=== PATIENT | male | born 1955 | race Caucasian/White ===

== ENCOUNTER 2018-06-12 16:47 | Inpatient (IN) | payer OTHER ==
[2018-06-12 17:16] LABS: INTERNATIONAL RATION (INR) 1.12
[2018-06-12 17:24] LABS: ALANINE AMINOTRANSFERASE 27 U/L (21-72); ALBUMIN 3.6 g/dL (3.5-5.0); ALKALINE PHOSPHATASE 109 U/L (38-126); ANION GAP 14 (5-19); ASPARTATE AMINO TRANSFERASE 22 U/L (17-59); BILIRUBIN,DIRECT 0.6 mg/dL (0.0-0.4); BILIRUBIN,TOTAL 1.8 mg/dL (0.2-1.3); BLOOD UREA NITROGEN 17 mg/dL (7-20); CALCIUM 9.2 mg/dL (8.4-10.2); CARBON DIOXIDE 22 mmol/L (22-30); CHLORIDE 100 mmol/L (98-107); GLUCOSE 141 mg/dL (75-110); POTASSIUM 3.4 mmol/L (3.6-5.0); SODIUM 136.3 mmol/L (137-145); TOTAL PROTEIN 6.5 g/dL (6.3-8.2)
[2018-06-12 17:41] LABS: HEMATOCRIT 43.7 % (37.9-51.0); HEMOGLOBIN 15.3 g/dL (13.5-17.0); MEAN CORPUSCULAR HEMOGLOBIN 31.7 pg (27.0-33.4); MEAN CORPUSCULAR HGB CONC 34.9 g/dL (32.0-36.0); MEAN CORPUSCULAR VOLUME 91 fl (80-97); PLATELET COUNT 235 10^3/uL (150-450); RED BLOOD COUNT 4.81 10^6/uL (4.35-5.55); RED CELL DISTRIBUTION WIDTH 13.4 % (11.5-14.0); WHITE BLOOD COUNT 17.3 10^3/uL (4.0-10.5)
[2018-06-12] MEDS ORDERED: RINGERS SOLUTION,LACTATED 1,000 ML IV ONE ×2 (17:43→20:45)
[2018-06-12] MEDS ORDERED: KETOROLAC TROMETHAMINE INJ/PF 30 MG/1 ML SDV IV ONE (17:44)
--- NOTE | 2018-06-12 17:47 | ER Document Report ---
ED General - General Chief Complaint: Fever Stated Complaint: FEVER Time Seen by Provider: 06/12/18 17:43 Mode of Arrival: Medic Information source: Patient, Relative, Emergency Med Personnel, [facility] Records Notes: 62-year-old male with hypertension presents via EMS after found him shaking and unable to stand secondary to weakness. Patient was diagnosed with a urinary tract infection this morning. He received a shot of Rocephin IM and was sent home with instructions that if his fever persisted he should return for a second shot of Rocephin. reports that the patient had a fever of 103 that started yesterday, resolved after taking Tylenol but reoccurred this afternoon. She sta skyler the fever was 103 when she found the patient with Rigors. She states when the patient attempted to get off the couch he was too weak to do so. Patient denies headache, blurred vision, nausea, vomiting, chest pain, shortness of breath, abdominal pain, dysuria, hematuria - HPI Onset: Just prior to arrival Onset/Duration: Gradual Quality of pain: Achy Severity: Mild Associated symptoms: Body/muscle aches, Chills, Fever, Weakness. denies: Chest pain, Nonproductive cough, Productive cough, Earache, Headache, Nausea, Vomiting, Shortness of breath, Sweating Exacerbated by: Denies Relieved by: Denies Similar symptoms previously: Yes Recently seen / treated by doctor: Yes - Seen by his primary care physician this morning - Related Data Allergies/Adverse Reactions: oxycodone Allergy (Verified 06/12/18 18:34) Past Medical History - General Information source: Patient, Relative, [facility] Records - Social History Smoking Status: Never Smoker Frequency of alcohol use: Occasional Drug Abuse: None Lives with: Spouse/Significant other Family History: Reviewed & Not Pertinent Patient has suicidal ideation: No Patient has homicidal ideation: No - Past Medical History Cardiac Medical History: Reports: Hx Hypertension Review of Systems - Review of Systems Notes: REVIEW OF SYSTEMS: CONSTITUTIONAL : + fever, chills, or sweats. Denies recent illness. Denies weight loss, recent hospitalizations. EENT: Denies visual changes, eye pain. Denies sore throat, oral lesions, difficulty swallowing. CARDIOVASCULAR: Denies chest pain. Denies palpitations. Denies lower extremity edema. RESPIRATORY: Denies cough. Denies shortness of breath, wheezing. GASTROINTESTINAL: Denies abdominal pain or distention. Denies nausea, vomiting, or diarrhea. Denies blood in vomitus, stools, or per rectum. Denies black, tarry stools. Denies constipation. GENITOURINARY: Denies difficulty urinating, painful urination, frequency, blood in urine, testicular pain or penile discharge. MUSCULOSKELETAL: Denies back or neck pain or stiffness. Denies joint pain or swelling. SKIN: Denies rash, lesions or sores. HEMATOLOGIC : Denies easy bruising or bleeding. LYMPHATIC: Denies swollen glands. NEUROLOGICAL: Denies confusion or altered mental status. Denies loss of consciousness. Denies dizziness or lightheadedness. Denies headache. Denies weakness or paralysis. Denies problems difficulty with ambulation, slurred speech. Denies sensory loss, numbness, or tingling. Denies seizures. PSYCHIATRIC: Denies anxiety or stress. Denies depression, suicidal ideation, or Physical Exam - Vital signs Vitals: Resp Pulse Ox 15 94 06/12/18 17:05 06/12/18 17:05 - Notes Notes: PHYSICAL EXAMINATION: GENERAL: Well-appearing, well-nourished and in no acute distress. HEAD: Atraumatic, normocephalic. EYES: Pupils equal round and reactive to light, extraocular movements intact, sclera anicteric, conjunctiva are normal. ENT: Nares patent, oropharynx clear without exudates. Moist mucous membranes. NECK: Normal range of motion, supple without lymphadenopathy LUNGS: Breath sounds clear to auscultation bilaterally and equal. No wheezes rales or rhonchi. HEART: Tachycardic, regular rhythm without murmurs ABDOMEN: Soft, nontender, nondistended abdomen. No guarding, no rebound. No masses appreciated. Musculoskeletal: Normal range of motion, no pitting or edema. No cyanosis. NEUROLOGICAL: Cranial nerves grossly intact. Normal speech, normal gait. Normal sensory, motor exams PSYCH: Normal mood, normal affect. SKIN: Warm, Dry, normal turgor, no rashes or lesions noted. Course - Re-evaluation Re-evalutation: 06/12/18 20:52 Laboratory 06/12/18 06/12/18 06/12/18 16:18 16:18 17:28 WBC 17.3 H RBC 4.81 Hgb 15.3 Hct 43.7 MCV 91 MCH 31.7 MCHC 34.9 RDW 13.4 Plt Count 235 Total Counted 100 Seg Neutrophils % Not Reportable Seg Neuts % (Manual) 90 H Band Neutrophils % 8 H Lymphocytes % Not Reportable Lymphocytes % (Manual) 1 L Monocytes % Not Reportable Monocytes % (Manual) 1 L Eosinophils % Not Reportable Eosinophils % (Manual) 0 Basophils % Not Reportable Basophils % (Manual) 0 Absolute Neutrophils Not Reportable Abs Neuts (Manual) 17.0 H Absolute Lymphocytes Not Reportable Abs Lymphs (Manual) 0.2 L Absolute Monocytes Not Reportable Abs Monocytes (Manual) 0.2 Absolute Eosinophils Not Reportable Absolute Eos (Manual) 0.0 Absolute Basophils Not Reportable Abs Basophils (Manual) 0.0 Toxic Granulation SLIGHT Toxic Vacuolation PRESENT Clumped Platelets PRESENT Platelet Comment Not Reportable RBC Morph Comment NORMO-CYTIC/CHROMIC PT 15.0 INR 1.12 VBG pH VBG pCO2 VBG HCO3 VBG Base Excess Sodium 136.3 L Potassium 3.4 L Chloride 100 Carbon Dioxide 22 Anion Gap 14 BUN 17 Creatinine 0.99 Est GFR ( Amer) > 60 Est GFR (Non-Af Amer) > 60 Glucose 141 H Lactic Acid Calcium 9.2 Total Bilirubin 1.8 H Direct Bilirubin 0.6 H Neonat Total Bilirubin Not Reportable Neonat Direct Bilirubin Not Reportable Neonat Indirect Bili Not Reportable AST 22 ALT 27 Alkaline Phosphatase 109 Troponin I Total Protein 6.5 Albumin 3.6 Urine Color Urine Appearance Urine pH Ur Specific [place] Urine Protein Urine Glucose (UA) Urine Ketones Urine Blood Urine Nitrite Urine Bilirubin Urine Urobilinogen Ur Leukocyte Esterase Urine WBC (Auto) Urine RBC (Auto) Urine WBC Clumps Squamous Epi Cells Auto Amorphous Sediment Auto Urine Mucus (Auto) Urine Ascorbic Acid Influenza A (Rapid) Influenza B (Rapid) 06/12/18 06/12/18 06/12/18 17:28 17:28 18:08 WBC RBC Hgb Hct MCV MCH MCHC RDW Plt Count Total Counted Seg Neutrophils % Seg Neuts % (Manual) Band Neutrophils % Lymphocytes % Lymphocytes % (Manual) Monocytes % Monocytes % (Manual) Eosinophils % Eosinophils % (Manual) Basophils % Basophils % (Manual) Absolute Neutrophils Abs Neuts (Manual) Absolute Lymphocytes Abs Lymphs (Manual) Absolute Monocytes Abs Monocytes (Manual) Absolute Eosinophils Absolute Eos (Manual) Absolute Basophils Abs Basophils (Manual) Toxic Granulation Toxic Vacuolation Clumped Platelets Platelet Comment RBC Morph Comment PT INR VBG pH VBG pCO2 VBG HCO3 VBG Base Excess Sodium Potassium Chloride Carbon Dioxide Anion Gap BUN Creatinine Est GFR ( Amer) Est GFR (Non-Af Amer) Glucose Lactic Acid 1.3 Calcium Total Bilirubin Direct Bilirubin Neonat Total Bilirubin Neonat Direct Bilirubin Neonat Indirect Bili AST ALT Alkaline Phosphatase Troponin I 0.016 Total Protein Albumin Urine Color YELLOW Urine Appearance SLIGHTLY-CLOUDY Urine pH 6.0 Ur Specific [place] 1.013 Urine Protein 100 H Urine Glucose (UA) NEGATIVE Urine Ketones 20 H Urine Blood MODERATE H Urine Nitrite NEGATIVE Urine Bilirubin NEGATIVE Urine Urobilinogen NEGATIVE Ur Leukocyte Esterase LARGE H Urine WBC (Auto) 115 Urine RBC (Auto) 54 Urine WBC Clumps RARE Squamous Epi Cells Auto <1 Amorphous Sediment Auto TRACE Urine Mucus (Auto) RARE Urine Ascorbic Acid NEGATIVE Influenza A (Rapid) Influenza B (Rapid) 06/12/18 06/12/18 18:30 18:30 WBC RBC Hgb Hct MCV MCH MCHC RDW Plt Count Total Counted Seg Neutrophils % Seg Neuts % (Manual) Band Neutrophils % Lymphocytes % Lymphocytes % (Manual) Monocytes % Monocytes % (Manual) Eosinophils % Eosinophils % (Manual) Basophils % Basophils % (Manual) Absolute Neutrophils Abs Neuts (Manual) Absolute Lymphocytes Abs Lymphs (Manual) Absolute Monocytes Abs Monocytes (Manual) Absolute Eosinophils Absolute Eos (Manual) Absolute Basophils Abs Basophils (Manual) Toxic Granulation Toxic Vacuolation Clumped Platelets Platelet Comment RBC Morph Comment PT INR VBG pH 7.48 H VBG pCO2 33.3 L VBG HCO3 24.3 VBG Base Excess 1.5 Sodium Potassium Chloride Carbon Dioxide Anion Gap BUN Creatinine Est GFR ( Amer) Est GFR (Non-Af Amer) Glucose Lactic Acid Calcium Total Bilirubin Direct Bilirubin Neonat Total Bilirubin Neonat Direct Bilirubin Neonat Indirect Bili AST ALT Alkaline Phosphatase Troponin I Total Protein Albumin Urine Color Urine Appearance Urine pH Ur Specific [place] Urine Protein Urine Glucose (UA) Urine Ketones Urine Blood Urine Nitrite Urine Bilirubin Urine Urobilinogen Ur Leukocyte Esterase Urine WBC (Auto) Urine RBC (Auto) Urine WBC Clumps Squamous Epi Cells Auto Amorphous Sediment Auto Urine Mucus (Auto) Urine Ascorbic Acid Influenza A (Rapid) NEGATIVE Influenza B (Rapid) NEGATIVE Chest X-Ray 06/12/18 17:47 IMPRESSION: Large hiatal hernia. No acute pulmonary disease. Temp Pulse Resp BP Pulse Ox 98.5 F 27 H 92/61 L 95 06/12/18 20:03 06/12/18 20:01 06/12/18 20:01 06/12/18 20:01 06/12/18 21:37 62-year-old male with hypertension and recent diagnosis of urinary tract infection presents via EMS with complaint of weakness, Rigor's, fever. Upon arrival patient is afebrile but reports that Tylenol was given prior to arrival. Patient has mild hypotension and tachycardia. CBC does show a leukocytosis of 17 and a bandemia of 8. Urinalysis consistent with urinary tract infection. Patient did receive IV fluids, ceftriaxone during his ED course. On reevaluation he states he is feeling better but still weak. Spoke to Dr. Lambert who has agreed for admission. Patient will be admitted to a medicine floor. - Vital Signs Vital signs: Temp Pulse Resp BP Pulse Ox 98.5 F 21 H 107/71 93 06/12/18 20:03 06/12/18 21:01 06/12/18 21:00 06/12/18 21:01 - Laboratory Result Diagrams: 06/12/18 17:28 06/12/18 16:18 Laboratory results interpreted by me: 06/12/18 06/12/18 06/12/18 16:18 17:28 18:08 WBC 17.3 H Seg Neuts % (Manual) 90 H Band Neutrophils % 8 H Lymphocytes % (Manual) 1 L Monocytes % (Manual) 1 L Abs Neuts (Manual) 17.0 H Abs Lymphs (Manual) 0.2 L VBG pH VBG pCO2 Sodium 136.3 L Potassium 3.4 L Glucose 141 H Total Bilirubin 1.8 H Direct Bilirubin 0.6 H Urine Protein 100 H Urine Ketones 20 H Urine Blood MODERATE H Ur Leukocyte Esterase LARGE H 06/12/18 18:30 WBC Seg Neuts % (Manual) Band Neutrophils % Lymphocytes % (Manual) Monocytes % (Manual) Abs Neuts (Manual) Abs Lymphs (Manual) VBG pH 7.48 H VBG pCO2 33.3 L Sodium Potassium Glucose Total Bilirubin Direct Bilirubin Urine Protein Urine Ketones Urine Blood Ur Leukocyte Esterase - Diagnostic Test Radiology reviewed: Image reviewed, Reports reviewed - EKG Interpretation by Me EKG shows normal: Sinus rhythm Rate: Tachycardia Rhythm: NSR When compared to previous EKG there are: No significant change Discharge - Discharge Clinical Impression: UTI (urinary tract infection) Qualifiers: Urinary tract infection type: site unspecified Hematuria presence: without hematuria Qualified Code(s): N39.0 - Urinary tract infection, site not specified Leukocytosis Qualifiers: Leukocytosis type: bandemia Qualified Code(s): D72.825 - Bandemia Hypotension Qualifiers: Hypotension type: unspecified hypotension type Qualified Code(s): I95.9 - Hypotension, unspecified Condition: Good Disposition: ADMITTED INPATIENT Admitting Provider: Petra (Hospitalist) Unit Admitted: Medical Floor
[2018-06-12 17:57] LABS: ABSOLUTE LYMPHOCYTES# (MANUAL) 0.2 10^3/uL (0.5-4.7); ABSOLUTE MONOCYTES # (MANUAL) 0.2 10^3/uL (0.1-1.4); BAND NEUTROPHILS % (MANUAL) 8 % (3-5); BASOPHILS % (MANUAL) 0 % (0-2); EOSINOPHILS % (MANUAL) 0 % (0-6); LYMPHOCYTES % (MANUAL) 1 % (13-45); MONOCYTES % (MANUAL) 1 % (3-13); SEGMENTED NEUTROPHILS % (MAN) 90 % (42-78); TOTAL CELLS COUNTED 100
[2018-06-12 17:58] LABS: PLATELET CLUMPS PRESENT; TOXIC GRANULATION SLIGHT; TOXIC VACUOLATION PRESENT
[2018-06-12] MEDS ORDERED: CEFTRIAXONE 1 GM/D5W RTU 1 GM/50 ML RTUPB IV ONE ×2 (18:06→18:54)
[2018-06-12 18:07] LABS: RBC MORPHOLOGY COMMENT NORMO-CYTIC/CHROMIC
[2018-06-12 18:24] LABS: AMORPHOUS SEDIMENT,URINE TRACE /HPF; APPEARANCE,URINE SLIGHTLY-CLOUDY; BILIRUBIN,URINE NEGATIVE (NEGATIVE); COLOR,URINE YELLOW; GLUCOSE, URINE NEGATIVE (NEGATIVE); KETONES,URINE 20 mg/dL (NEGATIVE); LEUKOCYTE ESTERASE,URINE LARGE (NEGATIVE); NITRITE,URINE NEGATIVE (NEGATIVE); PROTEIN,URINE 100 mg/dL (NEGATIVE); URINE SPECIFIC GRAVITY 1.013; UROBILINOGEN,URINE NEGATIVE mg/dL (<2.0)
[2018-06-12 18:42] LABS: VENOUS BLOOD BASE EXCESS 1.5 mmol/L; VENOUS BLOOD HCO3 24.3 mmol/L (20-32); VENOUS BLOOD PCO2 33.3 mmHg (35-63); VENOUS BLOOD PH 7.48 (7.30-7.42)
--- NOTE | 2018-06-12 19:04 | RADIOLOGY REPORT (SQ) ---
EXAM DESCRIPTION: CHEST 2 VIEWS COMPLETED DATE/TIME: 06/12/2018 6:56 pm REASON FOR STUDY: fever COMPARISON: None. EXAM PARAMETERS: NUMBER OF VIEWS: two views TECHNIQUE: Digital Frontal and Lateral radiographic views of the chest acquired. RADIATION DOSE: NA LIMITATIONS: none FINDINGS: LUNGS AND PLEURA: No opacities, masses or pneumothorax. No pleural effusion. MEDIASTINUM AND HILAR STRUCTURES: Large retrocardiac hiatal hernia. HEART AND VASCULAR STRUCTURES: Heart normal size. No evidence for failure. BONES: Chronic appearing low thoracic compression fractures. HARDWARE: None in the chest. OTHER: No other significant finding. IMPRESSION: Large hiatal hernia. No acute pulmonary disease. TECHNICAL DOCUMENTATION: JOB ID: [id number] Collections- All Rights Reserved Reading location - IP/workstation name: [email or web address]
[2018-06-12 19:15] LABS: A TYPE INFLUENZA AG NEGATIVE (NEGATIVE); B INFLUENZA AG NEGATIVE (NEGATIVE)
--- NOTE | 2018-06-12 19:32 | EKG REPORT ---
SEVERITY:- BORDERLINE ECG - SINUS TACHYCARDIA BORDERLINE T ABNORMALITIES, INFERIOR LEADS : Confirmed by: Tanna George MD 12-Jun-2018 19:31:19
[2018-06-12] MEDS ORDERED: TEMAZEPAM 15 MG CAPSULE PO PRN (22:04)
[2018-06-12] MEDS ORDERED: MAG HYDROX/AL HYDROX/SIMETH SUSP 30 ML UDCUP PO PRN (22:04)
[2018-06-12] MEDS ORDERED: ONDANSETRON 4 MG TAB.RAPDIS PO PRN (22:04)
[2018-06-12] MEDS ORDERED: ONDANSETRON HCL INJ/PF 4 MG/2 ML SDV IV PRN (22:04)
[2018-06-12] MEDS ORDERED: MAGNESIUM HYDROXIDE SUSP 30 ML UDCUP PO PRN (22:04)
[2018-06-12] MEDS ORDERED: IBUPROFEN 800 MG TABLET PO PRN (22:09)
[2018-06-12] MEDS ORDERED: ACETAMINOPHEN 325 MG TABLET PO PRN (22:09)
[2018-06-12] MEDS ORDERED: NALBUPHINE HCL INJ 10 MG/1 ML AMPULE IV PRN (22:09)
[2018-06-12] MEDS ORDERED: MEROPENEM 1 GM VIAL IV PRN (22:10)
[2018-06-12] MEDS ORDERED: FAMOTIDINE 20 MG TABLET PO ONE (22:30)
[2018-06-12] MEDS ORDERED: HEPARIN SOD (PORCINE) 5,000 UNIT/ML 1 ML SYRINGE SUBCUT ONE (22:30)
[2018-06-12] MEDS ORDERED: MEROPENEM 1 GM in NORMAL SALINE 50 ML IV ONE (23:00)
[2018-06-12] MEDS ORDERED: DOCUSATE SODIUM 100 MG CAPSULE PO ONE (23:00)
[2018-06-12] MEDS ORDERED: TAMSULOSIN HCL 0.4 MG CAP.SR.24H PO ONE (23:00)
[2018-06-12] MEDS ORDERED: MEROPENEM 1 GM VIAL ONE (23:29)
--- NOTE | 2018-06-13 01:53 | PDOC H&P ---
History of Present Illness Admission Date/PCP: 06/12/18 21:02 MAYNOR TAVERAS MD Patient complains of: Fever History of Present Illness: COLLEEN SUNG is a 62 year old male who presented to the emergency room via EMS with a 1 day history of fever to approximately 104 F. Patient admits that he developed a severe high fever and associated severe chills chills with rigors, moderately severe diaphoresis and moderately severe generalized weakness after being seen by his primary care provider this morning and being diagnosed with a urinary tract infection treated with an intramuscular injection of Rocephin. He was instructed to use Tylenol to help control his fever which he did successfully, but within a few hours the fever returned. He further admits that he had a fever up to approximately 103 F on the day prior to admission and he also acknowledges a history of several recent urinary tract infections with similar symptoms. He has not identified any aggravating or other ameliorating ameliorating factors for his urinary tract infections or fever. In the emergency room he was found to have a leukocytosis with a white blood count of 17,300 and a urine with increased WBCs as well as a positive leukocyte esterase and negative nitrite. Given his failed outpatient therapy patient was admitted to the hospital for further evaluation and treatment. Past Medical History Cardiac Medical History: Reports: Hypertension Denies: Atrial Fibrillation, Congestive Heart Failure, Coronary Artery Disease, DVT, Myocardial Infarction, Hyperlipidema, Pulmonary Embolism Pulmonary Medical History: Denies: Asthma, Chronic Obstructive Pulmonary Disease (COPD) EENT Medical History: Reports: Eyes - Uses corrective lenses Denies: Cataracts Neurological Medical History: Denies: Hemorrhagic CVA, Ischemic CVA, Seizures Endocrine Medical History: Denies: Diabetes Mellitus Type 1, Diabetes Mellitus Type 2, Hyperthyroidism, Hypothyroidism Renal/ Medical History: Reports: Other - Urinary tract infections Denies: Chronic Kidney Disease, Nephrolithiasis Malignancy Medical History: Reports: None GI Medical History: Denies: Cirrhosis, Crohn's Disease, Hepatitis, Peptic Ulcer Disease, Ulcerative Colitis Musculoskeltal Medical History: Denies: Arthritis, Gout Skin Medical History: Denies: Eczema, Psoriasis Psychiatric Medical History: Denies: Alcohol Dependency, Substance Abuse, Tobacco Dependency Traumatic Medical History: Reports: None Hematology: Denies: Anemia, Bleeding Tendencies Infectious Medical History: Reports: None Past Surgical History Past Surgical History: Reports: Knee Replacement, Orthopedic Surgery - Bilateral knee replacements Social History Information Source: Patient Lives with: Spouse/Significant other Smoking Status: Never Smoker Frequency of Alcohol Use: Rare Hx Recreational Drug Use: No Drugs: None Hx Prescription Drug Abuse: No - Advance Directive Resuscitation Status: Full Code Surrogate healthcare decision maker:: Spouse Family History Family History: CAD, Hypertension, Malignancy. denies: DM Parental Family History Reviewed: Yes Children Family History Reviewed: No Sibling(s) Family History Reviewed.: Yes Medication/Allergy Home Medications: Amlodipine Besylate [Norvasc 10 mg Tablet] 10 mg PO DAILY 06/12/18 Allergies/Adverse Reactions: oxycodone Allergy (Verified 06/12/18 18:34) Review of Systems Constitutional: PRESENT: as per HPI, chills - With rigors, fever(s), weakness Eyes: ABSENT: visual disturbances, other - Eye pain Ears: ABSENT: hearing changes, other - Ear pain Nose, Mouth, and Throat: ABSENT: mouth pain, sore throat Cardiovascular: ABSENT: chest pain, palpitations Respiratory: ABSENT: cough, dyspnea Gastrointestinal: ABSENT: abdominal pain, constipation, diarrhea, nausea, vomiting Genitourinary: ABSENT: difficulty urinating, dysuria, hematuria Musculoskeletal: ABSENT: back pain, joint swelling, muscle weakness Integumentary: ABSENT: pruritus, rash Neurological: ABSENT: confusion, convulsions, focal weakness, memory loss, syncope Psychiatric: ABSENT: anxiety, depression Endocrine: ABSENT: cold intolerance, heat intolerance Hematologic/Lymphatic: ABSENT: easy bleeding, easy bruising Physical Exam Vital Signs: Temp Pulse Resp BP Pulse Ox 98.5 F 21 H 107/71 93 06/12/18 20:03 06/12/18 21:01 06/12/18 21:00 06/12/18 21:01 Intake & Output 06/10/18 06/11/18 06/12/18 23:59 23:59 23:59 Intake Total 1000 Balance 1000 Weight 95.254 kg General appearance: PRESENT: no acute distress, cooperative Head exam: PRESENT: atraumatic, normocephalic Eye exam: ABSENT: conjunctival injection, nystagmus, scleral icterus Ear exam: PRESENT: normal external ear exam. ABSENT: bleeding, drainage Mouth exam: ABSENT: dry mucosa, neck supple Neck exam: ABSENT: thyromegaly, tracheal deviation Respiratory exam: PRESENT: clear to auscultation janae, symmetrical, unlabored Cardiovascular exam: PRESENT: RRR. ABSENT: clicks, gallop, rubs Pulses: PRESENT: normal radial pulses, normal dorsalis pedis pul Vascular exam: PRESENT: normal capillary refill. ABSENT: pallor GI/Abdominal exam: PRESENT: normal bowel sounds, soft. ABSENT: tenderness Rectal exam: PRESENT: deferred Extremities exam: ABSENT: joint swelling, pedal edema Musculoskeletal exam: PRESENT: full ROM, normal inspection. ABSENT: tenderness Neurological exam: PRESENT: alert, awake, oriented to person, oriented to place, oriented to time, oriented to situation, CN II-XII grossly intact. ABSENT: motor sensory deficit Psychiatric exam: PRESENT: appropriate affect, normal mood Skin exam: PRESENT: dry, intact, warm. ABSENT: jaundice, rash, urticaria Results Laboratory Results: 06/12/18 17:28 06/12/18 16:18 06/12/18 06/12/18 06/12/18 16:18 17:28 17:28 WBC 17.3 H RBC 4.81 Hgb 15.3 Hct 43.7 MCV 91 MCH 31.7 MCHC 34.9 RDW 13.4 Plt Count 235 Seg Neutrophils % Not Reportable Lymphocytes % Not Reportable Monocytes % Not Reportable Eosinophils % Not Reportable Basophils % Not Reportable Absolute Neutrophils Not Reportable Absolute Lymphocytes Not Reportable Absolute Monocytes Not Reportable Absolute Eosinophils Not Reportable Absolute Basophils Not Reportable VBG pH VBG pCO2 VBG HCO3 VBG Base Excess Sodium 136.3 L Potassium 3.4 L Chloride 100 Carbon Dioxide 22 Anion Gap 14 BUN 17 Creatinine 0.99 Est GFR ( Amer) > 60 Est GFR (Non-Af Amer) > 60 Glucose 141 H Lactic Acid 1.3 Calcium 9.2 Total Bilirubin 1.8 H AST 22 ALT 27 Alkaline Phosphatase 109 Total Protein 6.5 Albumin 3.6 Urine Color Urine Appearance Urine pH Ur Specific [place] Urine Protein Urine Glucose (UA) Urine Ketones Urine Blood Urine Nitrite Ur Leukocyte Esterase Urine WBC (Auto) Urine RBC (Auto) 06/12/18 06/12/18 18:08 18:30 WBC RBC Hgb Hct MCV MCH MCHC RDW Plt Count Seg Neutrophils % Lymphocytes % Monocytes % Eosinophils % Basophils % Absolute Neutrophils Absolute Lymphocytes Absolute Monocytes Absolute Eosinophils Absolute Basophils VBG pH 7.48 H VBG pCO2 33.3 L VBG HCO3 24.3 VBG Base Excess 1.5 Sodium Potassium Chloride Carbon Dioxide Anion Gap BUN Creatinine Est GFR ( Amer) Est GFR (Non-Af Amer) Glucose Lactic Acid Calcium Total Bilirubin AST ALT Alkaline Phosphatase Total Protein Albumin Urine Color YELLOW Urine Appearance SLIGHTLY-CLOUDY Urine pH 6.0 Ur Specific [place] 1.013 Urine Protein 100 H Urine Glucose (UA) NEGATIVE Urine Ketones 20 H Urine Blood MODERATE H Urine Nitrite NEGATIVE Ur Leukocyte Esterase LARGE H Urine WBC (Auto) 115 Urine RBC (Auto) 54 06/12/18 17:28 Troponin I 0.016 Impressions: Chest X-Ray 06/12/18 17:47 IMPRESSION: Large hiatal hernia. No acute pulmonary disease. Assessment and Plan - Diagnosis (1) SIRS (systemic inflammatory response syndrome) Is this a current diagnosis for this admission?: Yes Plan: Patient meets criteria for SIRS syndrome due to fever, leukocytosis and mild hypotension. Serum lactate is negative. Patient will be observed closely for possible sepsis with frequent vital signs and daily laboratory evaluations of his CBC admitted profile. Blood and urine cultures are pending. He will also be started on an IV antibiotic more appropriate for treatment of sepsis utilizing meropenem. Patient will receive high-volume IV fluids and other supportive and symptomatic therapy as required. Should he develop pain the pat ient will utilize Nubain 10 mg IV every 3 hours as needed for pain. (2) UTI (urinary tract infection) Qualifiers: Urinary tract infection type: site unspecified Hematuria presence: without hematuria Qualified Code(s): N39.0 - Urinary tract infection, site not specified Is this a current diagnosis for this admission?: Yes Plan: Patient's urinary tract infection will be treated with meropenem 1 g IV every 8 hours. Urine C&S is pending. As he has a history of several recurrent urinary tract infections over the last year or 2 he will be started on tamsulosin empirically for prophylaxis utilizing Flomax 0.4 mg p.o. daily (3) Fever and chills Is this a current diagnosis for this admission?: Yes Plan: Patient will be treated with routine supportive and subjective therapy for fever and chills. This will include Tylenol and/or ibuprofen. (4) HTN (hypertension) Qualifiers: Hypertension type: essential hypertension Qualified Code(s): I10 - Essential (primary) hypertension Is this a current diagnosis for this admission?: Yes Plan: Patient's usual antihypertensive medication will be held until such time as his blood pressure is more stable. He will be restarted on his Norvasc 10 mg daily once his condition has stabilized. - Time Time Spent with patient: 25-34 minutes Medications reviewed and adjusted accordingly: Yes Anticipated discharge: Home - Inpatient Certification Based on my medical assessment, after consideration of the patient's comorbidities, presenting symptoms, or acuity I expect that the services needed warrant INPATIENT care.: Yes I certify that my determination is in accordance with my understanding of Medicare's requirements for reasonable and necessary INPATIENT services [42 CFR 412.3e].: Yes Medical Necessity: Failure to Improve With Outpatient Therapy, Need Close Monitoring Due to Risk of Patient Decompensation, Need For IV Fluids, Need for IV Antibiotics, Risk of Complication if Not Cared For in Hospital
[2018-06-13] MEDS: HEPARIN SOD (PORCINE) 5,000 UNIT/ML 1 ML SYRINGE SUBCUT SCH ×3 (05:24→21:45)
[2018-06-13 05:36] LABS: HEMATOCRIT 37.7 % (37.9-51.0); MEAN CORPUSCULAR HEMOGLOBIN 32.1 pg (27.0-33.4); MEAN CORPUSCULAR HGB CONC 35.1 g/dL (32.0-36.0); MEAN CORPUSCULAR VOLUME 92 fl (80-97); PLATELET COUNT 199 10^3/uL (150-450); RED BLOOD COUNT 4.12 10^6/uL (4.35-5.55); RED CELL DISTRIBUTION WIDTH 13.4 % (11.5-14.0); WHITE BLOOD COUNT 16.5 10^3/uL (4.0-10.5)
[2018-06-13 05:43] LABS: HEMOGLOBIN 13.2 g/dL (13.5-17.0)
[2018-06-13 06:01] LABS: ABSOLUTE LYMPHOCYTES# (MANUAL) 0.3 10^3/uL (0.5-4.7); BAND NEUTROPHILS % (MANUAL) 1 % (3-5); BASOPHILS % (MANUAL) 0 % (0-2); EOSINOPHILS % (MANUAL) 1 % (0-6); LYMPHOCYTES % (MANUAL) 2 % (13-45); MONOCYTES % (MANUAL) 6 % (3-13); PLATELET COMMENT ADEQUATE; RBC MORPHOLOGY COMMENT NORMO-CYTIC/CHROMIC; SEGMENTED NEUTROPHILS % (MAN) 90 % (42-78); TOTAL CELLS COUNTED 100; TOXIC GRANULATION 1+; TOXIC VACUOLATION PRESENT
[2018-06-13 06:05] LABS: ANION GAP 8 (5-19); BLOOD UREA NITROGEN 16 mg/dL (7-20); CALCIUM 8.5 mg/dL (8.4-10.2); CARBON DIOXIDE 23 mmol/L (22-30); CHLORIDE 106 mmol/L (98-107); CHOLESTEROL 82.41 mg/dL (0-200); GLUCOSE 94 mg/dL (75-110); POTASSIUM 3.6 mmol/L (3.6-5.0); SODIUM 136.5 mmol/L (137-145); TRIGLYCERIDES 79 mg/dL (<150)
[2018-06-13 06:16] LABS: DIRECT LDL 40 mg/dL (<100)
[2018-06-13] MEDS: MEROPENEM 1 GM in NORMAL SALINE 50 ML IV SCH ×3 (06:46→21:45)
[2018-06-13 06:50] LABS: FREE T3 2.05 pg/mL (2.77-5.27); FREE T4 (FREE THYROXINE) 1.47 ng/dL (0.78-2.19)
[2018-06-13 07:04] LABS: THYROID STIMULATING HORMONE 0.76 uIU/mL (0.47-4.68)
[2018-06-13] MEDS: DOCUSATE SODIUM 100 MG CAPSULE PO SCH ×2 (09:43→17:17)
[2018-06-13] MEDS: MAGNESIUM OXIDE 400 MG TABLET PO SCH ×2 (09:43→21:45)
[2018-06-13] MEDS: AMLODIPINE BESYLATE 10 MG TABLET PO SCH (09:43)
[2018-06-13] MEDS: FAMOTIDINE 20 MG TABLET PO SCH ×2 (09:43→21:45)
[2018-06-13] MEDS: RINGERS SOLUTION,LACTATED 1,000 ML IV PRN ×2 (11:13→19:40)
--- NOTE | 2018-06-13 12:14 | PDOC PROGRESS REPORT ---
Subjective Progress Note for:: 06/13/18 Subjective:: 62 year old male who presented to the emergency room via EMS with a 1 day history of fever to approximately 104 F. Patient admits that he developed a severe high fever and associated severe chills chills with rigors, moderately severe diaphoresis and moderately severe generalized weakness after being seen by his primary care provider this morning and being diagnosed with a urinary tract infection treated with an intramuscular injection of Rocephin. He was instructed to use Tylenol to help control his fever which he did successfully, but within a few hours the fever returned. He further admits that he had a fever up to approximately 103 F on the day prior to admission and he also acknowledges a history of several recent urinary tract infections with similar symptoms. He has not identified any aggravating or other ameliorating ameliorating factors for his urinary tract infections or fever. In the emergency room he was found to have a leukocytosis with a white blood count of 17,300 and a urine with increased WBCs as well as a positive leukocyte esterase and negative nitrite. Given his failed outpatient therapy patient was admitted to the hospital for further evaluation and treatment. 06/[id number]-old male admitted with fever of 104. Found to have leukocytosis with a WBC count of 17,300. Urine analysis shows increased WBC and positive leukocyte esterase. Patient is doing much better temperature this morning is 98.3. Blood pressure is 111/68. Comfortably in the chair expressing desire to go home. Able to convince him to stay at least another day. Reason For Visit: SIRS SYNDROME, ACUTE URINARY TRACT INFECTION Physical Exam Vital Signs: Temp Pulse Resp BP Pulse Ox 97.4 F 91 18 100/65 93 06/13/18 07:37 06/13/18 07:37 06/13/18 07:37 06/13/18 07:37 06/13/18 07:37 Intake & Output 06/12/18 06/13/18 06/14/18 06:59 06:59 06:59 Intake Total 2049 50 Balance 2049 50 Weight 101.9 kg General appearance: PRESENT: no acute distress, well-developed Head exam: PRESENT: atraumatic Eye exam: PRESENT: PERRLA Mouth exam: PRESENT: moist, tongue midline Respiratory exam: PRESENT: clear to auscultation janae. ABSENT: rales, rhonchi, wheezes Cardiovascular exam: PRESENT: RRR. ABSENT: diastolic murmur, rubs, systolic murmur GI/Abdominal exam: PRESENT: normal bowel sounds, soft. ABSENT: distended, guarding, mass, organolmegaly, rebound, tenderness Extremities exam: PRESENT: full ROM. ABSENT: calf tenderness, clubbing, pedal edema Neurological exam: PRESENT: alert, awake, oriented to person, oriented to place, oriented to time, oriented to situation, CN II-XII grossly intact. ABSENT: motor sensory deficit Results Laboratory Results: 06/13/18 05:07 06/13/18 05:07 06/12/18 06/12/18 06/12/18 16:18 17:28 17:28 WBC 17.3 H RBC 4.81 Hgb 15.3 Hct 43.7 MCV 91 MCH 31.7 MCHC 34.9 RDW 13.4 Plt Count 235 Seg Neutrophils % Not Reportable Lymphocytes % Not Reportable Monocytes % Not Reportable Eosinophils % Not Reportable Basophils % Not Reportable Absolute Neutrophils Not Reportable Absolute Lymphocytes Not Reportable Absolute Monocytes Not Reportable Absolute Eosinophils Not Reportable Absolute Basophils Not Reportable VBG pH VBG pCO2 VBG HCO3 VBG Base Excess Sodium 136.3 L Potassium 3.4 L Chloride 100 Carbon Dioxide 22 Anion Gap 14 BUN 17 Creatinine 0.99 Est GFR ( Amer) > 60 Est GFR (Non-Af Amer) > 60 Glucose 141 H Lactic Acid 1.3 Calcium 9.2 Magnesium Total Bilirubin 1.8 H AST 22 ALT 27 Alkaline Phosphatase 109 Total Protein 6.5 Albumin 3.6 Triglycerides Cholesterol LDL Cholesterol Direct VLDL Cholesterol HDL Cholesterol TSH Free T4 Free T3 pg/mL Urine Color Urine Appearance Urine pH Ur Specific [place] Urine Protein Urine Glucose (UA) Urine Ketones Urine Blood Urine Nitrite Ur Leukocyte Esterase Urine WBC (Auto) Urine RBC (Auto) 06/12/18 06/12/18 06/13/18 18:08 18:30 05:07 WBC 16.5 H RBC 4.12 L Hgb 13.2 L D Hct 37.7 L MCV 92 MCH 32.1 MCHC 35.1 RDW 13.4 Plt Count 199 Seg Neutrophils % Not Reportable Lymphocytes % Not Reportable Monocytes % Not Reportable Eosinophils % Not Reportable Basophils % Not Reportable Absolute Neutrophils Not Reportable Absolute Lymphocytes Not Reportable Absolute Monocytes Not Reportable Absolute Eosinophils Not Reportable Absolute Basophils Not Reportable VBG pH 7.48 H VBG pCO2 33.3 L VBG HCO3 24.3 VBG Base Excess 1.5 Sodium Potassium Chloride Carbon Dioxide Anion Gap BUN Creatinine Est GFR ( Amer) Est GFR (Non-Af Amer) Glucose Lactic Acid Calcium Magnesium Total Bilirubin AST ALT Alkaline Phosphatase Total Protein Albumin Triglycerides Cholesterol LDL Cholesterol Direct VLDL Cholesterol HDL Cholesterol TSH Free T4 Free T3 pg/mL Urine Color YELLOW Urine Appearance SLIGHTLY-CLOUDY Urine pH 6.0 Ur Specific [place] 1.013 Urine Protein 100 H Urine Glucose (UA) NEGATIVE Urine Ketones 20 H Urine Blood MODERATE H Urine Nitrite NEGATIVE Ur Leukocyte Esterase LARGE H Urine WBC (Auto) 115 Urine RBC (Auto) 54 06/13/18 06/13/18 05:07 05:07 WBC RBC Hgb Hct MCV MCH MCHC RDW Plt Count Seg Neutrophils % Lymphocytes % Monocytes % Eosinophils % Basophils % Absolute Neutrophils Absolute Lymphocytes Absolute Monocytes Absolute Eosinophils Absolute Basophils VBG pH VBG pCO2 VBG HCO3 VBG Base Excess Sodium 136.5 L Potassium 3.6 Chloride 106 Carbon Dioxide 23 Anion Gap 8 BUN 16 Creatinine 0.97 Est GFR ( Amer) > 60 Est GFR (Non-Af Amer) > 60 Glucose 94 Lactic Acid Calcium 8.5 Magnesium 1.6 Total Bilirubin AST ALT Alkaline Phosphatase Total Protein Albumin Triglycerides 79 Cholesterol 82.41 LDL Cholesterol Direct 40 VLDL Cholesterol 16.0 HDL Cholesterol 30 L TSH 0.76 Free T4 1.47 Free T3 pg/mL 2.05 L Urine Color Urine Appearance Urine pH Ur Specific [place] Urine Protein Urine Glucose (UA) Urine Ketones Urine Blood Urine Nitrite Ur Leukocyte Esterase Urine WBC (Auto) Urine RBC (Auto) 06/12/18 17:28 Troponin I 0.016 Impressions: Chest X-Ray 06/12/18 17:47 IMPRESSION: Large hiatal hernia. No acute pulmonary disease. Assessment and Plan - Diagnosis (1) SIRS (systemic inflammatory response syndrome) Is this a current diagnosis for this admission?: Yes Plan: Patient meets criteria for SIRS syndrome due to fever, leukocytosis and mild hypotension. Serum lactate is negative. Patient will be observed closely for possible sepsis with frequent vital signs and daily laboratory evaluations of his CBC admitted profile. Blood and urine cultures are pending. He will also be started on an IV antibiotic more appropriate for treatment of sepsis utilizing meropenem. Patient will receive high-volume IV fluids and other supportive and symptomatic therapy as required. Should he develop pain the patient will utilize Nubain 10 mg IV every 3 hours as needed for pain. 06/13/2018-patient came in with fever, leukocytosis and mild hypotension. Leukocyte esterase was negative. He was started on IV meropenem because of recent history of multiple UTIs. Patient is much better today. Plan to continue the antibiotic therapy today and probable discharge home tomorrow if possible. (2) UTI (urinary tract infection) Qualifiers: Urinary tract infection type: site unspecified Hematuria presence: without hematuria Qualified Code(s): N39.0 - Urinary tract infection, site not specified Is this a current diagnosis for this admission?: Yes Plan: Patient's urinary tract infection will be treated with meropenem 1 g IV every 8 hours. Urine C&S is pending. As he has a history of several recurrent urinary tract infections over the last year or 2 he will be started on tamsulosin empirically for prophylaxis utilizing Flomax 0.4 mg p.o. daily 06/13/2018-patient came in with UTI with increased WBC in the urine, leukocyte esterase positive. On IV meropenem every 8 hours. Urine culture is pending. Blood culture is pending. (3) Hypotension Is this a current diagnosis for this admission?: Yes Plan: 06/13/2018-patient came blood pressures. With IV fluids blood pressures improved to 111/68 and heart rate is 90. Hypotension is resolving. - Time Time Spent with patient: 15-24 minutes Smoking Cessation Education: 3 to 10 minutes Anticipated discharge: Home
[2018-06-13] MEDS ORDERED: TAMSULOSIN HCL 0.4 MG CAP.SR.24H PO SCH (18:00)
[2018-06-14] MEDS: RINGERS SOLUTION,LACTATED 1,000 ML IV PRN ×2 (00:51→04:54)
[2018-06-14 05:26] LABS: HEMATOCRIT 40.2 % (37.9-51.0); HEMOGLOBIN 13.9 g/dL (13.5-17.0); MEAN CORPUSCULAR HEMOGLOBIN 31.8 pg (27.0-33.4); MEAN CORPUSCULAR HGB CONC 34.6 g/dL (32.0-36.0); MEAN CORPUSCULAR VOLUME 92 fl (80-97); PLATELET COUNT 183 10^3/uL (150-450); RED BLOOD COUNT 4.37 10^6/uL (4.35-5.55); RED CELL DISTRIBUTION WIDTH 13.2 % (11.5-14.0); WHITE BLOOD COUNT 14.4 10^3/uL (4.0-10.5)
[2018-06-14 05:48] LABS: ANION GAP 6 (5-19); BLOOD UREA NITROGEN 15 mg/dL (7-20); CALCIUM 8.6 mg/dL (8.4-10.2); CARBON DIOXIDE 27 mmol/L (22-30); CHLORIDE 103 mmol/L (98-107); CREATINE KINASE 65 U/L (55-170); GLUCOSE 83 mg/dL (75-110); SODIUM 135.7 mmol/L (137-145)
[2018-06-14 06:01] LABS: ABSOLUTE LYMPHOCYTES# (MANUAL) 0.4 10^3/uL (0.5-4.7); ABSOLUTE MONOCYTES # (MANUAL) 1.4 10^3/uL (0.1-1.4); ABSOLUTE NEUTROPHILS# (MANUAL) 12.4 10^3/uL (1.7-8.2); BAND NEUTROPHILS % (MANUAL) 8 % (3-5); BASOPHILS % (MANUAL) 1 % (0-2); EOSINOPHILS % (MANUAL) 0 % (0-6); LYMPHOCYTES % (MANUAL) 3 % (13-45); MONOCYTES % (MANUAL) 10 % (3-13); SEGMENTED NEUTROPHILS % (MAN) 78 % (42-78); TOTAL CELLS COUNTED 100
[2018-06-14 06:03] LABS: PLATELET CLUMPS PRESENT; RBC MORPHOLOGY COMMENT NORMO-CYTIC/CHROMIC
[2018-06-14] MEDS: MEROPENEM 1 GM in NORMAL SALINE 50 ML IV SCH ×2 (06:41→13:24)
[2018-06-14] MEDS: HEPARIN SOD (PORCINE) 5,000 UNIT/ML 1 ML SYRINGE SUBCUT SCH ×2 (06:41→13:24)
[2018-06-14] MEDS: MAGNESIUM OXIDE 400 MG TABLET PO SCH (09:04)
[2018-06-14] MEDS: FAMOTIDINE 20 MG TABLET PO SCH (09:05)
[2018-06-14] MEDS: DOCUSATE SODIUM 100 MG CAPSULE PO SCH (09:05)
[2018-06-14] MEDS: AMLODIPINE BESYLATE 10 MG TABLET PO SCH (09:05)
[2018-06-14 12:37] VITALS: BP 129/74
--- NOTE | 2018-06-14 12:49 | PDOC DISCHARGE SUMMARY ---
General - Admit/Disc Date/PCP Admission Date/Primary Care Provider: 06/12/18 21:02 MAYNOR TAVERAS MD Discharge Date: 06/14/18 - Discharge Diagnosis (1) SIRS (systemic inflammatory response syndrome) Is this a current diagnosis for this admission?: Yes Summary: Patient meets criteria for SIRS syndrome due to fever, leukocytosis and mild hypotension. Serum lactate is negative. Patient will be observed closely for possible sepsis with frequent vital signs and daily laboratory evaluations of his CBC admitted profile. Blood and urine cultures are pending. He will also be started on an IV antibiotic more appropriate for treatment of sepsis utilizing meropenem. Patient will receive high-volume IV fluids and other supportive and symptomatic therapy as required. Should he develop pain the patient will utilize Nubain 10 mg IV every 3 hours as needed for pain. 06/13/2018-patient came in with fever, leukocytosis and mild hypotension. Leukocyte esterase was negative. He was started on IV meropenem because of recent history of multiple UTIs. Patient is much better today. Plan to continue the antibiotic therapy today and probable discharge home tomorrow if possible. 06/14/[id number]-[id number]-old male came in with fever, leukocytosis and hypotension. Fever is resolved WBC count came down to 14,400. Urine cultures blood cultures are negative. Blood pressure is 129/74 normalized. Patient is going to go home on Bactrim DS 1 tablet p.o. twice daily for 5 days. Patient is strongly advised to follow-up with primary care physician in 3 to 5 days. (2) UTI (urinary tract infection) Is this a current diagnosis for this admission?: Yes Summary: Patient's urinary tract infection will be treated with meropenem 1 g IV every 8 hours. Urine C&S is pending. As he has a history of several recurrent urinary tract infections over the last year or 2 he will be started on tamsulosin empirically for prophylaxis utilizing Flomax 0.4 mg p.o. daily 06/13/2018-patient came in with UTI with increased WBC in the urine, leukocyte esterase positive. On IV meropenem every 8 hours. Urine culture is pending. Blood culture is pending. 06/14/2018-patient came in with fever and urine analysis shows increased WBC, leukocyte esterase positive. Patient was started on IV meropenem urine cultures blood cultures came back negative. Patient is going home on Bactrim DS 1 tablet p.o. twice daily for 5 days. (3) Hypotension Is this a current diagnosis for this admission?: Yes Summary: 06/14/2018 patient came in with low blood pressures most likely secondary to SIRS. Blood pressure today is 129/64. Hypotension is resolved. - Additional Information Resuscitation Status: Full Code Discharge Diet: As Tolerated Discharge Activity: Activity As Tolerated Prescriptions: Sulfamethoxazole/Trimethoprim [Bactrim Ds Tablet] 1 each PO BID #10 tablet Tamsulosin HCl [Flomax 0.4 mg Cap.sr] 0.4 mg PO PCSUPPER #30 cap.sr.24h Home Medications: Amlodipine Besylate [Norvasc 10 mg Tablet] 10 mg PO DAILY 06/12/18 Sulfamethoxazole/Trimethoprim [Bactrim Ds Tablet] 1 each PO BID #10 tablet 06/14/18 Tamsulosin HCl [Flomax 0.4 mg Cap.sr] 0.4 mg PO PCSUPPER #30 cap.sr.24h 06/14/18 History of Present Illness History of Present Illness: COLLEEN SUNG is a 62 year old male 62 year old male who presented to the emergency room via EMS with a 1 day history of fever to approximately 104 F. Patient admits that he developed a severe high fever and associated severe chills chills with rigors, moderately severe diaphoresis and moderately severe generalized weakness after being seen by his primary care provider this morning and being diagnosed with a urinary tract infection treated with an intramuscular injection of Rocephin. He was instructed to use Tylenol to help control his fever which he did successfully, but within a few hours the fever returned. He further admits that he had a fever up to approximately 103 F on the day prior to admission and he also acknowledges a history of several recent urinary tract infections with similar symptoms. He has not identified any aggravating or other ameliorating ameliorating factors for his urinary tract infections or fever. In the emergency room he was found to have a leukocytosis with a white blood count of 17,300 and a urine with increased WBCs as well as a positive leukocyte esterase and negative nitrite. Given his failed outpatient therapy patient was admitted to the hospital for further evaluation and treatment. Physical Exam Vital Signs: Temp Pulse Resp BP Pulse Ox 98.3 F 102 H 15 129/74 H 98 06/14/18 12:35 06/14/18 12:35 06/14/18 12:35 06/14/18 12:35 06/14/18 12:35 Intake & Output 06/13/18 06/14/18 06/15/18 06:59 06:59 06:59 Intake Total 2049 3740 1050 Balance 20490 1050 Weight 101.9 kg 101.2 kg General appearance: PRESENT: no acute distress Head exam: PRESENT: atraumatic Eye exam: PRESENT: PERRLA Neck exam: ABSENT: carotid bruit, JVD, lymphadenopathy, thyromegaly Respiratory exam: PRESENT: clear to auscultation janae. ABSENT: rales, rhonchi, wheezes Cardiovascular exam: PRESENT: RRR. ABSENT: diastolic murmur, rubs, systolic murmur GI/Abdominal exam: PRESENT: normal bowel sounds, soft. ABSENT: distended, guarding, mass, organolmegaly, rebound, tenderness Extremities exam: PRESENT: full ROM. ABSENT: calf tenderness, clubbing, pedal edema Neurological exam: PRESENT: alert, awake, oriented to person, oriented to place, oriented to time, oriented to situation, CN II-XII grossly intact. ABSENT: motor sensory deficit Psychiatric exam: PRESENT: appropriate affect, normal mood. ABSENT: homicidal ideation, suicidal ideation Results Laboratory Results: 06/14/18 04:39 06/14/18 04:39 06/14/18 06/14/18 04:39 04:39 WBC 14.4 H RBC 4.37 Hgb 13.9 Hct 40.2 MCV 92 MCH 31.8 MCHC 34.6 RDW 13.2 Plt Count 183 Seg Neutrophils % Not Reportable Lymphocytes % Not Reportable Monocytes % Not Reportable Eosinophils % Not Reportable Basophils % Not Reportable Absolute Neutrophils Not Reportable Absolute Lymphocytes Not Reportable Absolute Monocytes Not Reportable Absolute Eosinophils Not Reportable Absolute Basophils Not Reportable Sodium 135.7 L Potassium 4.0 Chloride 103 Carbon Dioxide 27 Anion Gap 6 BUN 15 Creatinine 0.81 Est GFR ( Amer) > 60 Est GFR (Non-Af Amer) > 60 Glucose 83 Calcium 8.6 Magnesium 1.9 06/12/18 06/14/18 17:28 04:39 Creatine Kinase 65 Troponin I 0.016 Impressions: Chest X-Ray 06/12/18 17:47 IMPRESSION: Large hiatal hernia. No acute pulmonary disease. Qualifiers - * PATIENT BEING DISCHARGED WITH ANY OF THE FOLLOWING DIAGNOSIS: No VTE patient discharged on overlapping Therapy?: No Plan Discharge Plan: She is discharged home. Time Spent: Less than 30 Minutes
== END 2018-06-14 13:45 | disposition home or self-care (01) | DRG 690 ==
LOC: ER 16:47 → EH 21:02 → 4S 22:32
PROVIDERS: ADMIT Emergency Medicine; ATTEND Emergency Medicine
DX: N39.0 Urinary tract infection, site not specified (principal); I10 Essential (primary) hypertension; Z96.653 Presence of artificial knee joint, bilateral; D72.829 Elevated white blood cell count, unspecified; Z82.49 Family history of ischemic heart disease and other diseases of the circulatory system; Z88.5 Allergy status to narcotic agent; Z87.440 Personal history of urinary (tract) infections
CPT/HCPCS: 36415; 71046; 80048; 80053; 80061; 81001; 82550; 82803; 83036; 83605; 83735; 84439; 84443; 84481; 84484; 85025; 85610; 87040; 87086; 87804; 93005; 93010; 96361; 96374; 99285; J0696; J2185; J3490; J7120